=== PATIENT | female | born 1970 ===

== ENCOUNTER 2017-12-15 19:10 | Emergency (ER) | payer OTHER, MEDICAID ==
[2017-12-15 19:11] VITALS: BMI 24.6
[2017-12-15 19:32] VITALS: BP 156/80; PULSE 74; RESP 16; TEMP 98.3; O2SAT 100
--- NOTE | 2017-12-15 22:44 | ED PDOC ---
HPI: General Adult Time Seen by Provider: 12/15/17 21:47 Chief Complaint (Nursing): Body Fluid Exposure Chief Complaint (Provider): Body Fluid Exposure History Per: Patient History/Exam Limitations: no limitations Onset/Duration Of Symptoms: Hrs (12x hours prior to arrival) Severity: Moderate Additional Complaint(s): 47 year old female patient with no pertinent medical history presents to the ED with complaints of bodily fluid exposure that occurred 12x hours prior to arrival. 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 Patient reports washing her eyes thoroughly after this occurred. Patient denies having any symptoms. PMD: None provided. Past Medical History Reviewed: Historical Data, Nursing Documentation, Vital Signs Vital Signs: Last Vital Signs Temp 98.3 F 12/15/17 19:29 Pulse 74 12/15/17 19:29 Resp 16 12/15/17 19:29 BP 156/80 H 12/15/17 19:29 Pulse Ox 100 12/15/17 19:29 - Medical History PMH: No Chronic Diseases - Surgical History Surgical History: (x1) - Family History Family History: States: No Known Family Hx - Home Medications Home Medications: Ambulatory Orders Medication Instructions Recorded Nitrofurantoin Macrocrystals 100 mg PO BID #14 cap 02/23/16 [Macrobid] Dolutegravir Sodium [Tivicay] 50 mg PO DAILY #30 tab 12/15/17 Emtricitabine/Tenofovir (Tdf) 1 tab PO DAILY 30 Days #30 tablet 12/15/17 [Truvada 200 mg-300 mg Tablet] - Allergies Allergies/Adverse Reactions: Allergies Allergy/AdvReac Type Severity Reaction Status Date / Time dimenhydrinate Allergy ANAPHYLAXIS Verified 12/15/17 19:28 iodine Allergy RASH Verified 12/15/17 19:28 Review of Systems ROS Statement: Except As Marked, All Systems Reviewed And Found Negative Constitutional: Negative for: Fever Physical Exam - Reviewed Nursing Documentation Reviewed: Yes Vital Signs Reviewed: Yes - Physical Exam Appears: Positive for: Well, Non-toxic, No Acute Distress Head Exam: Positive for: ATRAUMATIC, NORMOCEPHALIC Skin: Positive for: Normal Color Eye Exam: Positive for: Normal appearance, EOMI, PERRL Cardiovascular/Chest: Positive for: Regular Rate, Rhythm Respiratory: Positive for: Normal Breath Sounds Neurologic/Psych: Positive for: Alert, Oriented (3x) - Laboratory Results Result Diagrams: 12/15/17 22:40 12/15/17 22:40 - ECG O2 Sat by Pulse Oximetry: 100 (RA) Pulse Ox Interpretation: Normal Medical Decision Making Medical Decision Makin:47 Initial impression: 47 year old female with bodily fluid exposure. Initial plan: * amylase * CMP * hepatitis b core AB * hepatitis b surface ag * hepatitis c antibody * lipase * upreg * cbc * hepatitis b surface ab, gn * rapid hiv screen * rapid plasma reagin * urinalysis 22:40 PEP discussed with pt, she would like to start it. Upon provider reevaluation patient is medically stable, and requires no further treatment in the ED at this time. Patient will be discharged home with Rx for truvada and tivicay. Stressed importance of close f/u with pmd. Counseling was provided and all questions were answered regarding diagnosis and need for follow up with PMD to repeat labs in 4x weeks. There is agreement to discharge plan. Return if symptoms persist or worsen. Scribe Attestation: Documented by Romina Hopkins, acting as a scribe for Tiarra Moreira PA-C. Provider Scribe Attestation: All medical record entries made by the Scribe were at my direction and personally dictated by me. I have reviewed the chart and agree that the record accurately reflects my personal performance of the history, physical exam, medical decision making, and the department course for this patient. I have also personally directed, reviewed, and agree with the discharge instructions and disposition. Disposition - Clinical Impression Clinical Impression: Exposure to blood or body fluid - Disposition Referrals: Suzanne Ortiz MD [Family Provider] - Disposition Time: 22:30 Condition: GOOD Additional Instructions: will start antiviral medications although fairly low risk. must follow up with PMD for repeat labs in 4 weeks. Prescriptions: Dolutegravir Sodium [Tivicay] 50 mg PO DAILY #30 tab Emtricitabine/Tenofovir (Tdf) [Truvada 200 mg-300 mg Tablet] 1 tab PO DAILY 30 Days #30 tablet Instructions: Blood or Body Fluid Exposure Forms: [employer] ([place])
[2017-12-15 22:47] LABS: SQUAMOUS EPITHIAL 2 /hpf (0-5); URINE BACTERIA RARE (<OCC); URINE BILIRUBIN NEGATIVE (NEGATIVE); URINE BLOOD NEGATIVE (NEGATIVE); URINE CLARITY CLEAR (Clear); URINE COLOR STRAW (YELLOW); URINE GLUCOSE (UA) NEG (Normal); URINE LEUKOCYTE ESTERASE NEG Leu/uL (Negative); URINE PROTEIN NEGATIVE (NEGATIVE); URINE UROBILINOGEN 0.2-1.0 mg/dL (0.2-1.0)
[2017-12-15 22:47] LABS: BASO % 0.6 % (0.0-2.0); EOS % 0.8 % (0.0-4.0); HEMOGLOBIN 13.2 g/dL (12.0-16.0); LYMPH # 1.4 K/uL (1.0-4.3); LYMPH % 25.9 % (20.0-40.0); MEAN CELL VOLUME 91.6 fl (81.0-99.0); MEAN CORPUSCULAR HEMOGLOBIN 30.4 pg (27.0-31.0); MEAN CORPUSCULAR HGB CONC 33.2 g/dL (33.0-37.0); MEAN PLATELET VOLUME 7.7 fl (7.2-11.7); MONO # 0.4 K/uL (0.0-0.8); MONO % 7.1 % (0.0-10.0); NEUT # 3.5 K/uL (1.8-7.0); NEUT % 65.6 % (50.0-75.0); RBC 4.35 Mil/uL (3.80-5.20); RED CELL DISTRIBUTION WIDTH 13.7 % (11.5-14.5); WHITE BLOOD COUNT 5.4 K/uL (4.8-10.8)
[2017-12-15 22:54] LABS: LIPASE 52 U/L (23-300)
[2017-12-15 22:56] LABS: ALB/GLOB RATIO 1.1 (1.0-2.1); ALBUMIN 4.8 g/dL (3.5-5.0); ALT/SGPT 29 U/L (9-52); AMYLASE 82 U/L (30-110); AST/SGOT 30 U/L (14-36); BLOOD UREA NITROGEN 10 mg/dl (7-17); CALCIUM 9.5 mg/dL (8.4-10.2); GFR NON-AFRICAN AMERICAN > 60
[2017-12-16 12:50] LABS: HEPATITIS B SURFACE AG Negative (NEGATIVE)
[2017-12-16 12:55] LABS: HEPATITIS B CORE AB NEGATIVE (NEGATIVE)
[2017-12-16 13:08] LABS: HEPATITIS C ANTIBODY NEGATIVE (NEGATIVE)
== END 2017-12-15 23:44 | disposition home or self-care (01) ==
LOC: H.ER 19:10
DX: Z77.21 Contact with and (suspected) exposure to potentially hazardous body fluids (principal)